=== PATIENT | male | born 1985 | race American Indian/Alaskan Native ===

== ENCOUNTER 2016-12-18 18:09 | Emergency (ER) | payer SELFPAY ==
--- NOTE | 2016-12-18 18:13 | EDM.PDOC ---
ED HPI ENT - General Chief Complaint: ENT Problem Stated Complaint: EAR IRRITATION Time Seen by Provider: 12/18/16 18:28 Source of Information: Reports: Patient, RN, RN notes reviewed History Limitations: Reports: No limitations - History of Present Illness INITIAL COMMENTS - FREE TEXT/NARRATIVE: Patient presents with pain on right side of face for 3 days. He is not sure if it is his upper molars or ear. Timing/Duration: Reports: Gradual onset Severity: moderate Quality: Reports: Ache, Throbbing Improves with: Reports: None Worsens with: Reports: None Associated Symptoms: Reports: no other symptoms - Related Data Allergies/ADRs: Allergies Allergy/AdvReac Type Severity Reaction Status Date / Time No Known Allergies Allergy Verified 12/18/16 18:13 Home Meds: Home Meds . [No Known Home Meds] 04/22/15 [History] Past Medical History - Past Health History Medical/Surgical History: Denies Medical/Surgical History Musculoskeletal History: Reports: Fracture (left scapular) Dermatologic History: Reports: Eczema Social & Family History - Family History Family Medical History: Noncontributory - Tobacco Use Smoking Status *Q: Current Every Day Smoker Years of Tobacco use: 10 Packs/Tins Daily: 1 Used Tobacco, but Quit: No Second Hand Smoke Exposure: No - Alcohol Use Days Per Week of Alcohol Use: 0 - Recreational Drug Use Recreational Drug Use: No - Living Situation & Occupation Living situation: Reports: , with family Occupation: employed ED ROS ENT - Review of Systems Review Of Systems: ROS reveals no pertinent complaints other than HPI. ED EXAM, ENT - Physical Exam Exam: See Below Exam Limited By: No limitations General Appearance: alert, WD/WN, no apparent distress Eye Exam: bilateral eye: normal inspection Ears: normal external exam, normal canal, hearing grossly normal, normal TMs Nose: normal inspection, normal mucousa, no blood Mouth/Throat: Other (chronic gum decay. Multiple missing teeth. Right maxillary molars with adjacent swelling and tenderness, no flutuance. ) Head: atraumatic, normocephalic Neck: normal inspection, supple, non-tender, full range of motion Respiratory/Chest: no respiratory distress Neurological: alert, oriented, no motor/sensory deficits Skin: Warm, Dry, Intact, Normal color, No rash Course - Vital Signs Last Recorded V/S: See nurses notes for vitals. Departure - Departure Time of Disposition: 18:31 Disposition: Home, Self-Care 01 Condition: good Clinical Impression: Dental abscess Instructions: Dental Abscess, [id number] Forms: ED Department Discharge Additional Instructions: Clindamycin 300mg. Motrin 800mg. Viscous lidocaine 2% gel. Follow up with dentist.
== END 2016-12-18 18:44 | disposition home or self-care (01) ==
LOC: DL.ED 18:09
CPT/HCPCS: 99282; 99283

== ENCOUNTER 2017-04-16 09:18 | Emergency (ER) | payer SELFPAY ==
--- NOTE | 2017-04-16 09:31 | EDM.PDOC ---
ED HPI GENERAL MEDICAL PROBLEM - General Chief Complaint: ENT Problem Stated Complaint: [id number] SOMETHING WRONG IN EAR FACE PUFFY Time Seen by Provider: 04/16/17 09:31 Source of Information: Reports: Patient, Old Records, RN, RN Notes Reviewed History Limitations: Reports: No Limitations - History of Present Illness INITIAL COMMENTS - FREE TEXT/NARRATIVE: C/O several days of worsening Rt face pain that radiates to Rt ear. Today pt woke to find Rt face was slightly swollen. Denies fever or chills. Pt reports having "bad teeth" and has been trying to get into the dentist at [facility] but they are too busy to see him. 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 [No Known Home Meds] 04/22/15 [History] Past Medical History HEENT History: Reports: Other (See Below) (chronic dental decay) Musculoskeletal History: Reports: Fracture (left scapular) Dermatologic History: Reports: Eczema - Infectious Disease History Infectious Disease History: Reports: None Social & Family History - Family History Family Medical History: Noncontributory - Tobacco Use Smoking Status *Q: Current Every Day Smoker Years of Tobacco use: 16 Packs/Tins Daily: 1 Used Tobacco, but Quit: No Second Hand Smoke Exposure: No - Caffeine Use Caffeine Use: Reports: Energy Drinks, Soda - Alcohol Use Days Per Week of Alcohol Use: 0 - Recreational Drug Use Recreational Drug Use: No - Living Situation & Occupation Living situation: Reports: , with Family Occupation: Employed ED ROS ENT - Review of Systems Review Of Systems: ROS reveals no pertinent complaints other than HPI. ED EXAM, ENT - Physical Exam Exam: See Below Exam Limited By: No Limitations General Appearance: Alert, WD/WN, No Apparent Distress Eye Exam: Bilateral Eye: EOMI, Normal Inspection, PERRL Ears: Normal External Exam, Normal Canal, Hearing Grossly Normal, Normal TMs Nose: Normal Inspection, Normal Mucousa, No Blood Mouth/Throat: Normal Lips, Normal Oropharynx, Dental Tenderness (Rt upper and lower molar region), Gum Swelling (Rt upper molar region), Other (extensive chronic dental decay). No: Dental Trauma Head: Atraumatic, Normocephalic, Facial Tenderness (Rt with mild swelling, no erythema, no fluctuance or mass, skin is intact with increased warmth to touch) Neck: Normal Inspection, Supple, Non-Tender, Full Range of Motion. No: Lymphadenopathy (L), Lymphadenopathy (R) Respiratory/Chest: No Respiratory Distress, Lungs Clear, Normal Breath Sounds, No Accessory Muscle Use, Chest Non-Tender Cardiovascular: Regular Rate, Rhythm Neurological: Alert, Oriented, CN II-XII Intact, Normal Cognition, No Motor/ Sensory Deficits Psychiatric: Normal Affect, Normal Mood Skin: Dry, Intact, Normal Color, No Rash Course - Vital Signs Last Recorded V/S: Last Vital Signs Temp 36.2 C 04/16/17 09:33 Pulse 70 04/16/17 09:33 Resp 16 04/16/17 09:33 BP 154/107 H 04/16/17 09:33 Pulse Ox 97 04/16/17 09:33 - Orders/Labs/Meds Orders: Active Orders 24 hr Category Date Time Status Peripheral IV Care [RC] . DIRECTED Care 04/16/17 09:40 Active Sodium Chloride 0.9% [Saline Flush] Med 04/16/17 09:40 Active 10 ml FLUSH ASDIRECTED PRN Peripheral IV Insertion Adult [OM.PC] Stat Oth 04/16/17 09:40 Ordered Medication Orders Sodium Chloride (Saline Flush) 10 ml FLUSH ASDIRECTED PRN PRN Reason: Keep Vein Open Last Admin: 04/16/17 10:01 Dose: 10 ml Labs: Laboratory Tests 04/16/17 Range/Units 09:46 WBC 10.8 H (5.0-10.0) 10^3/uL RBC 5.00 (4.6-6.2) 10^6/uL Hgb 15.6 (14.0-18.0) g/dL Hct 44.8 (40.0-54.0) % MCV 89.6 (80-100) fL MCH 31.2 (27.0-34.0) pg MCHC 34.8 (33.0-35.0) g/dL Plt Count 223 (150-450) 10^3/uL Neut % (Auto) 67.8 (42.2-75.2) % Lymph % (Auto) 23.0 (20.5-50.1) % Mason % (Auto) 5.5 (2-8) % Eos % (Auto) 3.5 H (1.0-3.0) % Baso % (Auto) 0.2 (0.0-1.0) % Meds: Medications Generic Name Dose Route Start Last Admin Trade Name Freq PRN Reason Stop Dose Admin Sodium Chloride 10 ml 04/16/17 09:40 04/16/17 10:01 Saline Flush FLUSH 10 ml ASDIRECTED PRN Administration Keep Vein Open Discontinued Medications Generic Name Dose Route Start Last Admin Trade Name Freq PRN Reason Stop Dose Admin Clindamycin Phosphate 900 mg/ 106 mls @ 200 mls/hr 04/16/17 09:42 04/16/17 10 :02 Sodium Chloride IV 04/16/17 10:13 200 mls/hr ONETIME ONE Administration Ketorolac Tromethamine 30 mg 04/16/17 09:41 04/16/17 10:00 Toradol IVPUSH 04/16/17 09:42 30 mg ONETIME ONE Administration Lidocaine HCl 15 ml 04/16/17 09:40 04/16/17 10:06 Xylocaine 2% Viscous MUCMEM 04/16/17 09:41 15 ml ONETIME ONE Administration Departure - Departure Time of Disposition: 11:09 Disposition: Home, Self-Care 01 Condition: Good Clinical Impression: Dental decay, Dental infection, Dental decay - Discharge Information Instructions: Dental Caries, [id number], Dental Abscess, [id number] Forms: ED Department Discharge Additional Instructions: Rx: Amoxicillin 500mg Rx: Clindamycin 300mg Rx: Viscous Lidocaine 2% Rx: Tramadol 50mg Follow up in clinic with dentist tomorrow. If unable to see the dentist, see your primary doctor for recheck and request a referral to a dentist. - My Orders Last 24 Hours: My Active Orders 04/16/17 09:40 Peripheral IV Care [RC] . DIRECTED Sodium Chloride 0.9% [Saline Flush] 10 ml FLUSH ASDIRECTED PRN Peripheral IV Insertion Adult [OM.PC] Stat - Assessment/Plan Last 24 Hours: My Active Orders 04/16/17 09:40 Peripheral IV Care [RC] . DIRECTED Sodium Chloride 0.9% [Saline Flush] 10 ml FLUSH ASDIRECTED PRN Peripheral IV Insertion Adult [OM.PC] Stat
[2017-04-16 09:34] VITALS: BP 154/107
[2017-04-16] MEDS ORDERED: Lidocaine 2% Viscous Solution 15 ML Cup MUCMEM ONE (09:40)
[2017-04-16] MEDS ORDERED: Sodium Chloride 0.9% 10 ML Syringe FLUSH PRN (09:40)
[2017-04-16] MEDS ORDERED: Ketorolac 30 MG/ML SDV IVPUSH ONE (09:41)
[2017-04-16] MEDS ORDERED: Clindamycin Phosphate 900 MG in Sodium Chloride 0.9% 100 ML IV ONE (09:42)
[2017-04-16] MEDS ORDERED: traMADol 50 MG Tab PO ONE (11:20)
== END 2017-04-16 11:38 | disposition home or self-care (01) ==
LOC: DL.ED 09:18
DX: K04.7 Periapical abscess without sinus (principal); K02.9 Dental caries, unspecified; F17.210 Nicotine dependence, cigarettes, uncomplicated
CPT/HCPCS: 36415; 85025; 96365; 96375; 99283; A9270; J1885; J7050; S0077